=== PATIENT | female | born 1970 | race Caucasian/White ===

== ENCOUNTER 2023-05-10 14:37 | Inpatient (IN) ==
[2023-05-10] MEDS ORDERED: Nicotine GUM 2MG FRUIT FLAVOR PO PRN (14:48)
[2023-05-10] MEDS ORDERED: Rizatriptan 5 mg TAB (NF) PO PRN (14:51)
[2023-05-10] MEDS: DULoxetine DR 60 mg CAP PO SCH (20:54)
[2023-05-11] MEDS: DULoxetine DR 60 mg CAP PO SCH ×2 (08:05→20:29)
[2023-05-12] MEDS: DULoxetine DR 60 mg CAP PO SCH ×2 (08:06→20:41)
[2023-05-12] MEDS: Al Hydrox/Mg Hydrox/Simet LIQ 30 ML UDC PO PRN (08:07)
[2023-05-13] MEDS: DULoxetine DR 60 mg CAP PO SCH ×2 (08:16→20:11)
[2023-05-13 08:37] LABS: HDL Cholesterol 83.9 mg/dL
[2023-05-14] MEDS: DULoxetine DR 60 mg CAP PO SCH ×2 (08:04→19:57)
[2023-05-15] MEDS: DULoxetine DR 60 mg CAP PO SCH ×2 (08:22→20:28)
[2023-05-16] MEDS: DULoxetine DR 60 mg CAP PO SCH (08:46)
[2023-05-16] MEDS: Al Hydrox/Mg Hydrox/Simet LIQ 30 ML UDC PO PRN (09:54)
== END 2023-05-16 16:05 | disposition home or self-care (01) | DRG 885 ==
LOC: BSU 14:37
PROVIDERS: ADMIT Psychiatry & Neurology Psychiatry; ATTEND Psychiatry & Neurology Psychiatry